=== PATIENT | female | born 1995 | race African-American/Black ===

== ENCOUNTER 2021-03-26 04:55 | Emergency (ER) | payer SELFPAY ==
[2021-03-26 05:12] LABS: Urine Blood Negative (Negative); Urine Glucose Negative (Negative); Urine Protein Negative (Negative)
[2021-03-26 05:38] LABS: Urine Bacteria <20 /HPF (<20); Urine RBC <5 /HPF (NONE SEEN)
[2021-03-26] MEDS ORDERED: MAGNES/ALUMIN/SIMET 30ML UCUP ONE (05:45)
[2021-03-26] MEDS ORDERED: LIDOCAINE VISCOUS 2% SOLN 15 ML UDC ONE (05:46)
[2021-03-26 06:09] LABS: Absolute Lymphocytes (CBC) 2.8 K/uL (0.7-4.9); Basophils % 0.8 % (0-1.3); Hematocrit 41.7 % (36.0-45.0); Lymphocytes % 39.5 % (15.3-44.8); MPV 7.9 fL (7.6-11.3); RBC Red Blood Cell Count 4.73 M/uL (3.86-4.86)
[2021-03-26 06:28] LABS: AST/SGOT 9 U/L (15-37); Albumin 3.2 g/dL (3.4-5.0); BUN Blood Urea Nitrogen 11 mg/dL (7-18); Bicarbonate 31 mmol/L (21-32); Bilirubin Direct 0.1 mg/dL (0-0.2); Glucose Level 89 mg/dL (74-106); Lipase 96 U/L (73-393); Sodium Level 141 mmol/L (136-145)
[2021-03-26 06:32] LABS: Alkaline Phosphatase 55 U/L (45-117); Bilirubin Total 0.4 mg/dL (0.2-1.0); Protein, Total 6.8 g/dL (6.4-8.2)
[2021-03-26 06:33] LABS: ALT/SGPT 16 U/L (12-78)
--- NOTE | 2021-03-26 07:31 | RAD REPORT ---
EXAM DESCRIPTION: CTAbdomen Pelvis W Contrast - 03/26/2021 6:22 am CLINICAL HISTORY: Abdominal pain. ABD PAIN COMPARISON: No comparisons TECHNIQUE: Biphasic CT imaging of the abdomen and pelvis was performed with 100 ml non-ionic IV cont rast. All CT scans are performed using dose optimization technique as appropriate and may include automated exposure control or mA/KV adjustment according to patient size. FINDINGS: The lung bases are clear.Cholelithiasis suspected. The liver, spleen, pancreas, adrenal glands and kidneys are within normal limits. No bowel obstruction, free air, free fluid or abscess. Small fat containing umbilical. The appendix i s normal. No evidence of significant lymphadenopathy. Mild Lumbosacral degenerative changes are present. IMPRESSION: Normal appendix. Cholelithiasis.
--- NOTE | 2021-03-26 08:55 | RAD REPORT ---
EXAM DESCRIPTION: US - Abdomen Exam Limited - 03/26/2021 7:07 am CLINICAL HISTORY: UPPER ABD PAIN COMPARISON: No comparisons FINDINGS: The gallbladder demonstrates several shadowing gallstones. Slightly thickened gallbladder wall measuring 3 mm. The common bile duct is normal measuring 4 mm. The liver demonstrates no findings of intrahepatic biliary dilatation. IMPRESSION: Cholelithiasis. Upper limit of normal gallbladder wall measuring 3 mm. If cholecystitis remains a clinical concern, H KANU scan may be of value.
--- NOTE | 2021-03-26 09:10 | ER ---
Nurse's Notes [facility] Name: Purvi Morton Age: 25 yrs Sex: Female : 1995 Arrival Date: 03/26/2021 Time: 04:59 Bed 18 Private MD: Diagnosis: Other cholelithiasis without obstruction Presentation: 03/26 05:11 Chief complaint: Patient states: c/o "stabbing" pain of epigastrium since midnight; cc4 reports h/o gastric ulcer. Coronavirus screen: Vaccine status: Patient reports being unvaccinated. Client denies travel out of the [place] in the last 14 days. At this time, the client does not indicate any symptoms associated with coronavirus-19. Ebola Screen: Patient negative for fever greater than or equal to 101.5 degrees Fahrenheit, and additional compatible Ebola Virus Disease symptoms No symptoms or risks identified at this time. Initial Sepsis Screen: Does the patient meet any 2 criteria? No. Patient's initial sepsis screen is negative. Risk Assessment: Do you want to hurt yourself or someone else? Patient reports no desire to harm self or others. Onset of symptoms was March 26, 2021. 05:11 Method Of Arrival: Ambulatory cc4 05:11 Acuity: [place] 4 cc4 07:40 Initial Sepsis Screen: Does the patient have a suspected source of infection? No. sl2 Patient's initial sepsis screen is negative. Triage Assessment: 05:11 General: Appears uncomfortable, Behavior is calm, cooperative. Pain: Complains of pain cc4 in epigastrium Pain does not radiate. Pain currently is 10 out of 10 on a pain scale. at worst was 10 out of 10 on a pain scale. level that patient reports is acceptable is 0 out of 10 on a pain scale. Quality of pain is described as stabbing, gnawing. EENT: No signs and/or symptoms were reported regarding the EENT system. Neuro: No deficits noted. Level of Consciousness is awake, alert, obeys commands, Oriented to person, place, time, situation. Cardiovascular: Denies chest pain. Respiratory: No deficits noted. Airway is patent Respiratory effort is even, unlabored. GI: Reports epigastric pain. : No signs and/or symptoms were reported regarding the genitourinary system. Derm: No signs and/or symptoms reported regarding the dermatologic system. Skin is intact. Musculoskeletal: No signs and/or symptoms reported regarding the musculoskeletal system. Capillary refill < 3 seconds, Range of motion: intact in all extremities. 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 - Social history:: Patient/guardian denies using alcohol, street drugs, IV drugs, caffeine, tobacco products, Smoking status: Patient denies any tobacco usage or history of. - Family history:: not pertinent. - Hospitalizations: : No recent hospitalization is reported. - Code Status:: Full code. - Coronavirus screen:: The patient has NOT traveled to [place] in the past 14 days. The patient has NOT had contact with known/suspected case of Coronavirus?. - Ebola Screening: : Patient negative for fever greater than or equal to 101.5 degrees Fahrenheit, and additional compatible Ebola Virus Disease symptoms No symptoms or risks identified at this time. Screenin:40 Abuse screen: Denies threats or abuse. sl2 07:40 Nutritional screening: No deficits noted. Tuberculosis screening: No symptoms or risk sl2 factors identified. Never had TB. Possible symptoms: None Risk factors: None. Fall Risk None identified. No fall in past 12 months (0 pts). No secondary diagnosis (0 pts). IV access (20 points). Ambulatory Aid- None/Bed Rest/Nurse Assist (0 pts). Gait- Normal/Bed Rest/Wheelchair (0 pts) Mental Status- Oriented to own ability (0 pts). Total Pekrins Fall Scale indicates No Risk (0-24 pts). Assessment: 05:11 Reassessment: See triage note. cc4 05:40 Reassessment: # 20 g angiocath inserted right AC x 1 attempt with no difficulty, olvin. cc4 well; blood drawn \\T\\ sent to lab. 05:40 Reassessment: medicated with GI cocktail as ordered; urine test negative; cc4 urine sent to lab for micro \\T\\ culture. 06:00 Reassessment: To CT via stretcher. cc4 06:15 Reassessment: Returned from CT via stretcher; NAD. Pain: Denies pain. cc4 07:30 Pain: Denies pain. sl2 07:40 GI: Bowel sounds present X 4 quads. Abd is soft and non tender Reports lower abdominal sl2 pain. 08:10 Reassessment: Patient AAO X 3, ambulated to restroom with steady gait noted, denies sl2 pain or discomfort at this time. VSS. Awaiting disposition. Will continue to re-assess and monitor. 09:06 Pain: Denies pain. sl2 Vital Signs: 05:11 BP 131 / 85; Pulse 73; Resp 20; Temp 98.2(O); Pulse Ox 100% on R/A; Weight 120.2 kg; cc4 Height 5 ft. 4 in. (162.56 cm); 05:11 Weight 120.2 kg; Height 5 ft. 4 in. (162.56 cm); cc4 05:11 BP 131 / 85; Pulse 73; Resp 20; Temp 98.2; Pulse Ox 100% on R/A; Weight 120.2 kg; cc4 Height 5 ft. 4 in. (162.56 cm); 05:15 BP 129 / 96; Pulse 69; Resp 20; Pulse Ox 100% on R/A; cc4 07:30 BP 126 / 82; Pulse 78; Resp 18; Pulse Ox 99% ; sl2 08:00 BP 120 / 88; Pulse 75; Resp 18; Temp 98.6(O); Pulse Ox 100% on R/A; sl2 09:00 BP 107 / 81; Pulse 73; Resp 18; Temp 98.5(O); Pulse Ox 100% on R/A; sl2 05:11 Body Mass Index 45.49 (120.20 kg, 162.56 cm) cc4 ED Course: 04:59 Patient arrived in ED. bp1 05:02 Tomas Monsivais MD is Attending Physician. rn 05:06 Candi Oviedo RN is Primary Nurse. cc4 05:13 Urine Dipstick-Ancillary Sent. ds4 05:40 Triage completed. cc4 06:04 Urine Culture Sent. cc4 06:04 CT Abd/Pelvis - IV Contrast Only Sent. cc4 06:04 Basic Metabolic Panel Sent. cc4 06:04 CBC with Diff Sent. cc4 06:04 Hepatic Function Sent. cc4 06:04 Lipase Sent. cc4 06:22 CT Abd/Pelvis - IV Contrast Only In Process Unspecified. EDMS 06:54 US Abdomen Limited Sent. cc4 07:07 US Abdomen Limited In Process Unspecified. EDMS 07:32 Steffen Gross PA is PHCP. cp 07:40 No provider procedures requiring assistance completed. Flushed. sl2 07:40 Flushed right antecubital with 5 ml normal saline. sl2 07:40 Patient has correct armband on for positive identification. Placed in gown. Bed in low sl2 position. Call light in reach. Side rails up X2. 07:40 Arm band placed on right wrist. sl2 09:08 Kalpesh Schwartz MD is Referral Physician. cp 09:34 IV discontinued, intact, bleeding controlled, No redness/swelling at site. Pressure sl2 dressing applied. Administered Medications: 05:40 Drug: GI Cocktail without - (Maalox Suspension 30 ml, Lidocaine Liquid 2 % 15 cc4 ml) Route: PO; 07:40 Follow up: Response: No adverse reaction; Pain is decreased sl2 Outcome: 09:09 Discharge ordered by . cp 09:34 Discharged to home ambulatory. sl2 09:34 Condition: stable 09:34 Discharge instructions given to patient, Instructed on discharge instructions, follow up and referral plans. medication usage, Demonstrated understanding of instructions, follow-up care, medications, Prescriptions given X 4. 09:36 Patient left the ED. sl2 Signatures: Dispatcher [employer] EDMS Tomas Monsivais MD MD rn Swanson, Donovan ds4 Steffen Gross PA PA cp Yamile Adames Christie, RN RN cc4 Queenie Amaral RN RN sl2 Corrections: (The following items were deleted from the chart) 05:37 05:11 Home Meds: metaprolol 10 mg nightly for High Blood Pressure; cc4 cc4
--- NOTE | 2021-03-26 09:10 | EDPHYS ---
Physician Documentation [facility] Name: Purvi Morton Age: 25 yrs Sex: Female : 1995 Arrival Date: 03/26/2021 Time: 04:59 Bed 18 Private MD: ED Physician Tomas Monsivais HPI: 03/26 05:19 This 25 yrs old Black Female presents to ER via Unassigned with complaints of Abdominal rn Pain. 05:19 The patient presents with abdominal pain in the epigastric area, in the periumbilical rn area. Onset: The symptoms/episode began/occurred last night. The symptoms do not radiate. Associated signs and symptoms: Pertinent positives: nausea, Pertinent negatives: blood in stools, chest pain, constipation, diarrhea, dysuria, fever, shortness of breath, vaginal discharge, vomiting blood. The symptoms are described as achy, crampy. Modifying factors: The symptoms are alleviated by nothing, the symptoms are aggravated by nothing. Severity of pain: At its worst the pain was moderate in the emergency department the pain has improved. The patient has experienced similar episodes in the past. The patient has not recently seen a physician. Patient reports upper and mid abdominal pain that began last night. States went to bed approximately 30 minutes after eating. Has had history of acid reflux but does not take her medication regularly only as needed. Denies blood in the stool or hematemesis. Denies fever. Denies cough. Denies vomiting or diarrhea. States this is happened about 4 times this month.. [employer]OR COMM[facility]: 07:40 LMP 03/06/2021 sl2 Historical: - Allergies: 05:11 No Known Allergies; cc4 - Home Meds: 05:11 metoprolol succinate 25 mg oral Tb24 1 tab once daily for hypertension [Active]; cc4 pantoprazole 40 mg oral TbEC 1 tab once daily for gastric ulcer [Active]; fluoxetine 20 mg Oral cap 1 cap once daily for major depressive disorder [Active]; - PMHx: 05:11 gastric ulcer; depression; Hypertensive disorder; cc4 - Immunization history:: Adult Immunizations up to date. - Social history:: Patient/guardian denies using alcohol, street drugs, IV drugs, caffeine, tobacco products, Smoking status: Patient denies any tobacco usage or history of. - Family history:: not pertinent. - Hospitalizations: : No recent hospitalization is reported. - Code Status:: Full code. - Coronavirus screen:: The patient has NOT traveled to [place] in the past 14 days. The patient has NOT had contact with known/suspected case of Coronavirus?. - Ebola Screening: : Patient negative for fever greater than or equal to 101.5 degrees Fahrenheit, and additional compatible Ebola Virus Disease symptoms No symptoms or risks identified at this time. ROS: 05:19 Constitutional: Negative for fever, chills, and weight loss, Eyes: Negative for injury, rn pain, redness, and discharge, Neck: Negative for injury, pain, and swelling, Cardiovascular: Negative for chest pain, palpitations, and edema, Respiratory: Negative for shortness of breath, cough, wheezing, and pleuritic chest pain, Abdomen/GI: + abd pain and nausea. Back: Negative for injury and pain, : Negative for injury, bleeding, discharge, and swelling, MS/Extremity: Negative for injury and deformity, Skin: Negative for injury, rash, and discoloration, Neuro: Negative for headache, weakness, numbness, tingling, and seizure. 05:19 All other systems are negative. Exam: 05:19 Constitutional: This is a well developed, well nourished patient who is awake, alert, rn and in no acute distress. Head/Face: Normocephalic, atraumatic. Cardiovascular: Regular rate and rhythm. No pulse deficits. Respiratory: No increased work of breathing, no retractions or nasal flaring. Abdomen/GI: Soft, mild epigastric and periumbilical tenderness, no RUQ tenderness, neg fleming Skin: Warm, dry MS/ Extremity: Pulses equal, no cyanosis. Neuro: Awake and alert, GCS 15 Vital Signs: 05:11 BP 131 / 85; Pulse 73; Resp 20; Temp 98.2(O); Pulse Ox 100% on R/A; Weight 120.2 kg; cc4 Height 5 ft. 4 in. (162.56 cm); 05:11 Weight 120.2 kg; Height 5 ft. 4 in. (162.56 cm); cc4 05:11 BP 131 / 85; Pulse 73; Resp 20; Temp 98.2; Pulse Ox 100% on R/A; Weight 120.2 kg; cc4 Height 5 ft. 4 in. (162.56 cm); 05:15 BP 129 / 96; Pulse 69; Resp 20; Pulse Ox 100% on R/A; cc4 07:30 BP 126 / 82; Pulse 78; Resp 18; Pulse Ox 99% ; sl2 08:00 BP 120 / 88; Pulse 75; Resp 18; Temp 98.6(O); Pulse Ox 100% on R/A; sl2 09:00 BP 107 / 81; Pulse 73; Resp 18; Temp 98.5(O); Pulse Ox 100% on R/A; sl2 05:11 Body Mass Index 45.49 (120.20 kg, 162.56 cm) cc4 MDM: 05:02 Patient medically screened. rn 06:40 Differential diagnosis: appendicitis, cholecystitis, Cholelithiasis, diverticulitis, rn gastritis, gastroesophageal reflux disease, non-specific abd pain, pancreatitis, Peptic Ulcer Disease, Perf. Duodenal Ulcer. Data reviewed: vital signs, nurses notes, lab test result(s). Counseling: I had a detailed discussion with the patient and/or guardian regarding: the historical points, exam findings, and any diagnostic results supporting the discharge/admit diagnosis, lab results. Response to treatment: the patient's symptoms have markedly improved after treatment. ED course: Pain resolved approximately 15 to 20 minutes after GI cocktail. Currently denies any pain.. 09:00 ED course: VSS. Patient reports pain resolved and is observed resting comfortably in cp exam room. Discussed results of labs and radiology studies showing gallbladder stones. Will discharge to home for continued monitoring and recommend general surgery f/u. 03/26 05:11 Order name: Urine Dipstick-Ancillary; Complete Time: 07:55 EDMS 03/26 07:55 Interpretation: Normal except: UESTR 1+. 03/26 05:15 Order name: Urine Microscopic Only; Complete Time: 05:53 ds4 03/26 07:55 Interpretation: Normal except: UWBC 10-20; SQEPI 5-10. 03/26 05:17 Order name: Basic Metabolic Panel; Complete Time: 06:40 rn 03/26 08:57 Interpretation: Reviewed. 03/26 05:17 Order name: CBC with Diff; Complete Time: 06:17 rn 03/26 08:57 Interpretation: Reviewed. 03/26 05:17 Order name: Hepatic Function; Complete Time: 06:40 rn 03/26 07:56 Interpretation: Normal except: AST 9; ALB 3.2; GLOB 3.6; A/G 0.9. cp 03/26 05:17 Order name: Lipase; Complete Time: 06:40 rn 03/26 05:17 Order name: CT Abd/Pelvis - IV Contrast Only; Complete Time: 07:54 rn 03/26 05:38 Order name: Urine Culture; Complete Time: 06:58 EDMS 03/26 06:32 Order name: CREATININE WHOLE BLOOD; Complete Time: 06:40 EDMS 03/26 06:50 Order name: US Abdomen Limited; Complete Time: 08:56 rn 03/26 08:57 Interpretation: Report reviewed. cp 03/26 05:17 Order name: IV Saline Lock; Complete Time: 06:04 rn 03/26 05:17 Order name: Labs collected and sent; Complete Time: 06:04 rn Administered Medications: 05:40 Drug: GI Cocktail without - (Maalox Suspension 30 ml, Lidocaine Liquid 2 % 15 cc4 ml) Route: PO; 07:40 Follow up: Response: No adverse reaction; Pain is decreased sl2 Disposition Summary: 03/26/21 09:09 Discharge Ordered Location: Home cp Problem: new cp Symptoms: have improved cp Condition: Stable cp Diagnosis - Other cholelithiasis without obstruction cp Followup: cp - With: Kalpesh Schwartz MD - When: 1 - 2 days - Reason: cholelithiasis Discharge Instructions: - Discharge Summary Sheet cp - Cholelithiasis cp Forms: - Medication Reconciliation Form cp - Thank You Letter cp - Antibiotic Education cp - Prescription Opioid Use cp Prescriptions: - Zofran 4 mg Oral Tablet - take 1 tablet by ORAL route every 12 hours As needed; 20 tablet; Refills: 0, cp Product Selection Permitted - Cipro 500 mg Oral Tablet - take 1 tablet by ORAL route every 12 hours for 7 days; 14 tablet; Refills: 0, cp Product Selection Permitted - dicyclomine 20 mg Oral Tablet - take 1 tablet by ORAL route 4 times per day; 30 tablet; Refills: 0, Product cp Selection Permitted - Pepcid 20 mg Oral Tablet - take 1 tablet by ORAL route every 12 hours for 10 days; 20 tablet; Refills: 0, cp Product Selection Permitted Addendum: 04/01/2021 06:57 Co-signature as Attending Physician, Tomas Monsivais MD. r n 06:58 I agree with the assessment and plan of care. Attestation: The patient's history, exam r n findings, diagnostics, and a summary of any interventions or procedures was reviewed in detail with Steffen LEON. Signatures: Dispatcher [employer] EDME Tomas Monsivais MD MD rn Page, Corey, PA PA cp Cooper, Christie RN RN cc4 Queenie Amaral RN RN sl2 Corrections: (The following items were deleted from the chart) 03/26 05:14 05:13 Urine Microscopic Only ordered. EDME EDMS 05:15 05:13 Urine --Ancillary ordered. [facility] EDME 05:25 05:19 Constitutional: This is a well developed, well nourished patient who is awake, rn alert, and in no acute distress. Head/Face: Normocephalic, atraumatic. Cardiovascular: Regular rate and rhythm. No pulse deficits. Respiratory: No increased work of breathing, no retractions or nasal flaring. Abdomen/GI: Soft, mild epigastric and periumbilical tenderness, no RUQ tenderness, neg fleming Skin: Warm, dry MS/ Extremity: Pulses equal, no cyanosis. Neuro: Awake and alert, GCS 15 rn 05:37 05:11 Home Meds: metaprolol 10 mg nightly for High Blood Pressure; cc4 cc4
[2021-03-26 10:27] VITALS: O2SAT 100
[2021-03-26 10:28] VITALS: BP 107/81; TEMP 98.5
--- OUTSIDE RECORDS SUMMARY | 2021-03-30 17:44 | XMS REPORT | Continuity of Care Document ---
:1995 Author Organization [facility] t Address [address] [place] [address] Care Team Providers Name Role Phone NOEL, Gabriel Primary Care Physician Unavailable RYAN Attending Clinician Unavailable Pola ESCALANTE, L Attending Clinician Doctor Unassigned, Name Attending Clinician Unavailable RYAN Admitting Clinician Unavailable Payers Payer Name Policy Type Policy Number Effective Date Expiration Date S ource Advance Directives Directive Decision Effective Termination Comments Source Date Date Healthcare Agents on N/A [facility] FileNameRelationshipHealthcare [facility] Agent [facility]Communication[facility] Ladonna BrownMotherHealth Care [phone] (Mobile) Problems Condition Condition Condition Status Onset Resolution Last Treating Co mments Source Name Details Category Date Date Treatment Clinician Date Arthritis Arthritis Disease Active 2020-05 Uni vers of lumbar of lumbar 1-12 ity of spine, spine, 00:00: [place] mild mild 00 Medical Branch Cholelithi Cholelithi Disease Active 2020-05 U nivers asis with asis with 1-12 ity of cholecysti cholecysti [place] Dyslipidem Dyslipidem Disease Active U nivers ia (high ia (high 8-03 ity of LDL; low LDL; low 00:00: [place] HDL) HDL) 00 Medical Branch GERD GERD Disease Active Univers (gastroeso (gastroeso 4-30 it y of phageal phageal 00:00: [place] reflux reflux 00 Medical disease) disease) Branch Hypertensi Hypertensi Disease Active U nivers on, on, 5-03 [place] secondary secondary [place] Morbid Morbid Disease Active Univers obesity obesity 9-30 ity of 00:00: [place] 00 Medical Branch Reactive Reactive Disease Active Unive rs depression depression it y of [place] [facility] Allergies, Adverse Reactions, Alerts Allergy Allergy Status Severity Reaction(s) Onset Inactive Treating Comm ents Source Name Type Date Date Clinician KETOROLA DRUG Active High Anxiety 2018-05 Univers C INGREDI 0-09 ity of 00:00: [place] [facility] Ketorola Propensi Active Itching 2018-05 Unive rs c ty to 0-09 ity of adverse 00:00: [place] reaction 00 Medical s Branch Cat Hair Propensi Active Rash Univer s Standard ty to 8-14 ity of ized adverse 00:00: [place] Allergen reaction Medica l ic s Branch Extract CAT HAIR DRUG Active Low Rash Univers STANDARD INGREDI 8-14 ity of IZED 00:00: [place] ALLERGEN 00 Medical IC Branch EXTRACT Social History Social Habit Start Date Stop Date Quantity Comments Source History SDOH University o f Alcohol Frequency [facility] edical Branch History SDDC University o f Alcohol Std [place] Medical Drinks Branch History [facility] University o f Alcohol Binge [place] Medic al Branch Exposure to Not sure University SARS-CoV-2 [facility] (event) Branch Alcohol intake 2021-03-29 2021-03-29 Ex-drinker University of 00:00:00 00:00:00 (finding) [facility] Alcohol Comment 2016-09-17 2016-09-17 socially Universit y of 00:00:00 00:00:00 [facility] Sex Ass[birth year] Universit y of 00:00:00 00:00:00 [facility] Smoking Status Start Date Stop Date Source Never smoker [facility] Medications Ordered Filled Start Stop Current Ordering Indication Dosage Frequency Signature Comments Components Source Medication Medication Date Date Medication? Clinician (SIG) Name Name FLUoxetine Yes [id number] 20mg Take 1 Univers 20 mg 9-20 capsule by ity of capsule 00:00: mouth [place] 00 every Medical morning. Branch DOSE INCREASE. methocarbam Yes [id number] 500mg Take 1 Univers oL 500 mg 9-20 [id number] tablet by ity of tablet 00:00: mouth 4 00 (four) Medical times [place] daily as needed (muscle pain or spasm). FLUoxetine Yes [id number] 20mg Take 1 Univers 20 mg 9-20 capsule by ity of capsule 00:00: mouth [place] 00 every Medical morning. Branch DOSE INCREASE. methocarbam Yes [id number] 500mg Take 1 Univers oL 500 mg 9-20 [id number] tablet by ity of tablet 00:00: mouth 4 00 (four) Medical times [place] daily as needed (muscle pain or spasm). triamcinolo Yes [id number] Apply to [facility] [phone] area(s) 2 ity of acetonide 00:00: (two) [place] 0.1 % 00 times Medical ointment daily. Branch triamcinolo Yes [id number] Apply to [facility] [phone] area(s) 2 ity of acetonide 00:00: (two) [place] 0.1 % 00 times Medical ointment daily. Branch metoprolol Yes [id number] 25mg Take 1 U nivers tartrate 25 7-30 tablet by ity of mg tablet 00:00: mouth 2 [place] 00 (two) Medical times [place] daily. metoprolol Yes [id number] 25mg Take 1 U nivers tartrate 25 7-30 tablet by ity of mg tablet 00:00: mouth 2 [place] 00 (two) Medical times Branch daily. Immunizations Ordered Immunization Filled Immunization Date Status Commen ts Source Name Name Meningococcal 2013-11-08 Completed University of Polysaccharide 00:00:00 [facility] marni (groups A, C, Y and Branc h W-135) conjugate vaccine (MCV4P) Meningococcal 2013-11-08 Completed [facility] Polysaccharide 00:00:00 [place] Medi marni (groups A, C, Y and Branc h W-135) conjugate vaccine (MCV4P) TDAP 2010-01-14 Completed [facility] 00:00:00 [facility] TDAP 2010-01-14 Completed [facility] 00:00:00 [facility] Procedures Procedure Date / Time Performed Performing Clinician [facility] e CONSENT/REFUSAL FOR 2021-03-29 20:51:52 Doctor Unassigned, No Un [facility] DIAGNOSIS AND Name Medical Branch TREATMENT Encounters Start End Encounter Admission Attending Care Care Encounter Source Date/Time Date/Time Type Type Clinicians Facility Department ID 2021-03-29 2021-03-29 Outpatient X RYAN [facility] [id number] Univers 14:59:00 14:59:00 KATARINA itelliot of [facility] 2021-03-29 2021-03-29 Patient Pola [facility] [id number] Univers 00:00:00 00:00:00 Outreach [facility] [id number] i ty of [place] [id number] Igor as AMPARO?BLEA [phone] S[place] lucie [facility] [address] [place] [address] MEDICAL OFFICE BUILDING 2021-03-29 2021-03-29 Orders Doctor ANNA MARIE [id number] Univers 00:00:00 00:00:00 Only Unassigned, WILMER [id number] ity of [place] [facility] [id number] Igor as [phone] [place] [address] Branch Results This patient has no known results.
== END 2021-03-26 09:36 | disposition home or self-care (01) ==
LOC: ER 04:55
DX: K80.80 Other cholelithiasis without obstruction (principal); I10 Essential (primary) hypertension; K25.9 Gastric ulcer, unspecified as acute or chronic, without hemorrhage or perforation; F32.A Depression, unspecified
CPT/HCPCS: 36415; 74177; 76705; 80048; 80076; 81003; 81015; 82565; 83690; 85025; 87086; 87088; 99284; Q9967

== ENCOUNTER 2024-01-16 09:44 | Emergency (ER) | payer OTHER, SELFPAY ==
[2024-01-16] MEDS ORDERED: NA CHLORIDE 0.9% 1,000 ML ONE (10:09)
[2024-01-16] MEDS ORDERED: LEVETIRACETAM 500 MG/5 ML VIAL IV ONE (10:09)
[2024-01-16] MEDS ORDERED: NA CHLORIDE 0.9% 100 ML ONE (10:09)
[2024-01-16 10:26] LABS: Absolute Basophils 0.1 K/uL (0-0.5); Absolute Eosinophils 0.1 K/uL (0-0.5); Absolute Lymphocytes (CBC) 2.6 K/uL (0.7-4.9); Absolute Monocytes 0.7 K/uL (0.1-1.3); Absolute Neutrophil 4.6 K/uL (1.8-8.0); Basophils % 0.7 % (0-1.3); Eosinophils % 1.6 % (0-4.4); Hematocrit 45.5 % (36.0-45.0); Hemoglobin 14.8 g/dL (12.0-15.0); MCH 29.6 pg (27.0-35.0); MCHC 32.6 g/dL (32.0-36.0); MCV 90.7 fL (80-100); MPV 9.1 fL (7.6-11.3); Monocytes % 8.5 % (3.3-12.3); Neutrophils % 57.2 % (41.7-73.7); Platelets 236 thou/uL (152-406); RBC Red Blood Cell Count 5.01 M/uL (3.86-4.86); Red Cell Distribution Width 13.1 % (12.1-15.2)
[2024-01-16 10:35] LABS: Specific Gravity 1.018 (1.005-1.030); Sqamous Epithelial <5 /HPF (None Seen); Urine Bacteria None Seen /HPF (<20); Urine Bilirubin NEGATIVE (Negative); Urine Blood 3+ (Negative); Urine Clarity Clear (Clear); Urine Color Light-Yellow (Yellow); Urine Culture Reflex Order NOT NEEDED; Urine Glucose NEGATIVE (Negative); Urine Ketones TRACE (Negative); Urine Microscopic Reflex YN ORDER UMIC; Urine Nitrite NEGATIVE (Negative); Urine Protein TRACE (Negative); Urine RBC >50 /HPF (None Seen); Urine Urobilinogen Normal (Normal); Urine WBC <5 /HPF (<5); Urine Yeast (Budding) Trace /HPF (None Seen)
[2024-01-16 10:45] LABS: Albumin 3.4 g/dL (3.4-5.0); Albumin/Globulin Ratio 0.9 (1.1-1.8); Anion Gap 8.9 mEq/L (5.0-15.0); Bilirubin Total 0.4 mg/dL (0.2-1.0); Globulin 3.8 g/dL (2.3-3.5); Potassium 3.9 mEq/L (3.5-5.1); Protein, Total 7.2 g/dL (6.4-8.2)
[2024-01-16] MEDS ORDERED: ONDANSETRON 4 MG/2 ML VIAL ONE (11:02)
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
[2024-01-16 11:22] VITALS: TEMP 98.4; O2SAT 100
[2024-01-16 11:23] VITALS: BP 126/85
== END 2024-01-16 11:11 | disposition home or self-care (01) ==
LOC: ER 09:44
DX: G40.509 Epileptic seizures related to external causes, not intractable, without status epilepticus (principal)
CPT/HCPCS: 36415; 80053; 81001; 81025; 85025; 96365; 96375; 99285; J1953; J2405; J7030